=== PATIENT | female | born 1950 | race African-American/Black ===

== ENCOUNTER 2019-11-08 13:35 | Outpatient (CLI) | payer OTHER, SELFPAY | END 2019-11-08 13:36 | disposition home or self-care (01) | LOC: ANHAUDIO 13:39 | DX: H93.11 Tinnitus, right ear (principal); H90.3 Sensorineural hearing loss, bilateral | CPT/HCPCS: 92557; 92567 ==

== ENCOUNTER 2020-01-17 13:02 | Outpatient (RCR) | payer OTHER, SELFPAY | END 2020-01-17 23:59 | disposition home or self-care (01) | LOC: ANHAUDIO 13:02 | DX: Z46.1 Encounter for fitting and adjustment of hearing aid (principal) | CPT/HCPCS: V5160; V5261 ==